=== PATIENT | female | born 1970 ===

== ENCOUNTER → 2020-07-19 07:22 | Outpatient (CLI) | payer OTHER | END | disposition home or self-care (01) | LOC: LAB 07:22 | PROVIDERS: ATTEND Internal Medicine Hematology & Oncology | DX: D50.8 Other iron deficiency anemias (principal); I10 Essential (primary) hypertension; R97.8 Other abnormal tumor markers; R97.0 Elevated carcinoembryonic antigen [CEA]; C50.111 Malignant neoplasm of central portion of right female breast; F33.8 Other recurrent depressive disorders; F42.8 Other obsessive-compulsive disorder; E04.0 Nontoxic diffuse goiter ==